=== PATIENT | female | born 1975 | race Hispanic/Latino ===

== ENCOUNTER 2025-08-30 09:33 | Day surgery (SDC) | payer BC ==
--- NOTE | 2025-08-30 08:25 | HP ---
HISTORY OF PRESENT ILLNESS: This 50-year-old had some rectal bleeding and some hemorrhoid issues. No prior colonoscopy. Family history negative for colon cancer. Has some loose stools, some constipation. PAST MEDICAL HISTORY: Osteopenia, osteoarthritis, type 2 diabetes, hyperlipidemia, arthritis, hypertension, history of headaches. HOME MEDICATIONS: Glipizide, chlorzoxazone, escitalopram, hydroxyzine, vitamin D, aspirin, Mounjaro, lisinopril, atorvastatin, metformin. ALLERGIES: Floxin as stated and Percocet with some vision changes. PAST SURGICAL HISTORY: Appendectomy, rotator cuff surgery, hysterectomy, and C section in the past. SOCIAL HISTORY: No smoking. Occasional alcohol use. FAMILY HISTORY: Negative for colon cancer. REVIEW OF SYSTEMS: Twelve systems reviewed. Pertinent for medical problems noted above. No chest pain or palpitations. All other systems negative or noncontributory as above and per preadmission questionnaire. PHYSICAL EXAMINATION: GENERAL: No acute distress. VITAL SIGNS: Height 4 feet 11 inches, BMI 38.58. HEENT: Sclerae anicteric. NECK: No JVD. CARDIOVASCULAR: Regular rate and rhythm. RESPIRATORY: Clear ABDOMEN: Soft. SKIN: Dry. EXTREMITIES: No cyanosis or edema. RECTAL: Some prolapsing internal hemorrhoids. Some external skin tags. History of hemorrhoids in the past. No thrombosed external hemorrhoids currently. NEUROLOGIC: Alert and oriented, moving all extremities symmetrically. PSYCHIATRIC: Appropriate mood and affect. ASSESSMENT: History of some rectal bleeding. No prior colonoscopy. History of some prolapsing internal hemorrhoids. I had a long discussion with the patient of options, the importance of avoiding straining, avoid constipation, high fiber diet, and Metamucil to titrate to soft bulky stools. Discussed options of hemorrhoid treatment including banding versus excisional therapy. Risks of bleeding and infection, risks of bowel injury possibly requiring open procedure, risk of incomplete exam possibly requiring barium enema, risks of missed diagnosis possibly requiring other procedure or referrals, risk of anesthesia, sedation, risk of bowel prep but not limited to regarding the colonoscopy. Regarding the hemorrhoid banding, risk of recurrent bleeding or progression of hemorrhoid disease possibly requiring other procedure or referrals, remote risk of pelvic sepsis. Again, recommend avoid straining and avoid constipation, high fiber diet with Metamucil and titrate to soft bulky stools. PLAN: We will schedule outpatient with MAC anesthesia, colonoscopy, possible internal hemorrhoidal banding. Continue medication for hypertension, hyperlipidemia, and diabetes.
[2025-08-30] MEDS ORDERED: D50W 50 ml Abboject IV ONE (09:34)
[2025-08-30] MEDS: Lactated Ringers 1,000 ML IV SCH (09:48)
[2025-08-30 10:05] VITALS: RESP 16
[2025-08-30] MEDS ORDERED: BENADRYL 50 MG/ML ONE (12:19)
[2025-08-30] MEDS ORDERED: Reglan 10 MG/2 ML ONE (12:19)
[2025-08-30] MEDS ORDERED: propofoL IV ONE ×3 (12:20→13:06)
[2025-08-30] MEDS ORDERED: Versed 2 MG/2 ML Injection ONE (12:20)
[2025-08-30 13:40] VITALS: TEMP 97.4
[2025-08-30 13:58] VITALS: BP 147/84; PULSE 76; O2SAT 97
--- NOTE | 2025-09-01 12:21 | OP ---
SURGERY DATE/TIME: 08/30/2025 [id number] PREOPERATIVE DIAGNOSIS: History of some rectal bleeding, some internal and external hemorrhoids, need for screening colonoscopy as well as possible hemorrhoid banding. POSTOPERATIVE DIAGNOSES: 1) Grade 3 internal and external hemorrhoids. 2) Small early polyp versus hyperplastic lesion in rectum. 3) Only fair bowel prep. 4) Mild diverticulosis left colon. 5) Tortuous colon. 6) ASA class 2. PROCEDURE: 1) Colonoscopy to cecum, hot biopsy polypectomy small early polyp versus hyperplastic lesion distal rectum. 2) Examination under sedation with internal hemorrhoid banding x3 columns. SURGEON: Nagi Ames MD ANESTHESIA: MAC. ESTIMATED BLOOD LOSS: Less than 10 mL. INDICATIONS: Above. Risks and benefits explained in detail. Consent obtained. DESCRIPTION OF PROCEDURE AND FINDINGS: Patient taken to the endoscopy room. MAC anesthesia induced. After official time-out and no disagreement with planned procedure, digital rectal exam revealed internal and external hemorrhoids. Videocolonoscope inserted and passed up through a tortuous sigmoid, descending, transverse, and ascending colon. With 2 different staff members putting pressure on the abdomen, the scope slowly passed through the cecum. Appendiceal orifice and valve well visualized. Prep overall had a lot of foamy stool and some liquidy semi-solid stool throughout the colon. This was suction irrigated as clear as possible, just slightly limiting exam for very small lesions. Overall fair limited bowel prep. The scope was slowly, carefully withdrawn over the next 12 minutes. There were no signs of any large polyps, masses, or obstructing lesions. Again irrigation of liquid stool was accomplished as well as possible. There was a few diverticula, small diverticula in the left colon. Otherwise, scope pulled back in the rectum. There was a little 2 mm early polyp versus hyperplastic lesion removed with hot biopsy forceps. Whether it was just a hyperplastic lesion or early polyp, it was removed with hot biopsy forceps. Good hemostasis noted. Scope was withdrawn. The half shafer retractors were carefully inserted. The hemorrhoid band placed left lateral column along with suction obstetrics/gynecology nurse top edge of the hemorrhoid. The suction obstetrics/gynecology nurse was then controlled with suction in the right posterior position, therefore, the standard clamp and obstetrics/gynecology nurse was then used, grasping the top edge of the hemorrhoid column and the band carefully fired at the base of the tuft of tissue. This was then repeated in the right anterior column with the standard clamp obstetrics/gynecology nurse as the suction obstetrics/gynecology nurse was not functioning well. Three or 4 bands had been attempted to fire but did not fire on the tissue with the suction banders just lose passed out on that one. Of the columns, right anterior, right posterior, and left lateral columns had been banded. Less than 10 mL of blood from just placing the retractors in and appeared to have adequate hemostasis at this time. Findings discussed with family over the phone as family was not in the building at the time. He can to titrate fiber to soft bulky stools, avoid straining, avoid constipation. Use extra strength Tylenol p.r.n. aches and pains.
== END 2025-08-30 14:11 | disposition home or self-care (01) ==
LOC: SDC 09:33
PROVIDERS: ATTEND Surgery
DX: Z12.11 Encounter for screening for malignant neoplasm of colon (principal); K62.5 Hemorrhage of anus and rectum; K64.4 Residual hemorrhoidal skin tags; K64.8 Other hemorrhoids; E11.9 Type 2 diabetes mellitus without complications; K62.1 Rectal polyp; K57.30 Diverticulosis of large intestine without perforation or abscess without bleeding